=== PATIENT | male | born 1950 | race Caucasian/White ===

== ENCOUNTER 2017-04-28 06:02 | Day surgery (SDC) | payer MEDICARE, OTHER ==
[~2017-04-28] VITALS: Ht 175.3 cm; Wt 90.7 kg
[~2017-04-28 06:02] MED LIST: ASPI325 PO; BUPR150ERA PO; BUPR75 PO; CEPH500 PO; CHOL10002 PO; CIPR500 PO; DILT120 PO; DOCU100 PO; EXTRA STRENGTH500 MG PO; FISH OIL 1,0001 EAC1 PO; FISH1000 PO; HYDR1TAB94 PO; METO50ER PO; MULVITMIND PO; NAPR500 PO; OXYC5 PO; ROXICODONE5 MG PO; TAMS.4ER PO
[2017-04-29 04:47] LABS: BASOPHILS ABSOLUTE AUTO 0.01 K/mm3 (0.00-0.23); BASOPHILS PERCENT AUTO 0 % (0-2); EOSINOPHILS PERCENT AUTO 0 % (0-6); Hematocrit 34.9 % (37.0-53.0); Hemoglobin 11.9 g/dL (13.5-17.5); IMMATURE GRAN ABSOLUTE AUTO 0.02 K/mm3 (0.00-0.10); IMMATURE GRAN PERCENT AUTO 0 % (0-1); LYMPHOCYTES ABSOLUTE AUTO 1.56 K/mm3 (0.84-5.20); LYMPHOCYTES PERCENT AUTO 13 % (21-46); MONOCYTES ABSOLUTE AUTO 1.94 K/mm3 (0.16-1.47); MONOCYTES PERCENT AUTO 16 % (4-13); Mean Corpuscular HGB 30.6 pg (26.0-34.0); Mean Corpuscular HGB Conc 34.1 g/dL (31.5-36.5); Mean Corpuscular Volume 90 fL (80-100); Mean Platelet Volume 9.9 fL (9.1-12.4); NEUTROPHILS ABSOLUTE AUTO 8.77 K/mm3 (1.96-9.15); NEUTROPHILS PERCENT AUTO 71 % (41-73); Platelet Count 177 K/mm3 (150-400); RDW Coefficient Variation 13.3 % (11.7-14.2); Red Blood Cell Count 3.89 M/mm3 (4.30-5.90)
[2017-04-29 05:15] LABS: Anion Gap 6 mmol/L (6-16); Blood Urea Nitrogen 17 mg/dL (8-24); Bun/Creatinine Ratio 22.9 (12.0-20.0); CO2, Blood 25 mmol/L (21-32); Calcium, Blood 8.3 mg/dL (8.5-10.1); Chloride, Blood 109 mmol/L (98-108); Creatinine, Blood 0.74 mg/dL (0.60-1.20); Glomerular Filtration Rate >60 (60-); Glucose, Blood 117 mg/dL (70-99); Magnesium, Blood 2.2 mg/dL (1.6-2.4); Potassium, Blood 3.9 mmol/L (3.5-5.5); Sodium, Blood 140 mmol/L (136-145)
[2017-04-29] MEDS ORDERED: ASPI325EC PO (10:46)
[2017-04-29] MEDS ORDERED: OXYC5 PO (10:46)
== END 2017-04-29 11:21 | disposition home or self-care (01) ==
LOC: SURS 06:02 → PRE IP 06:02 → SURS 06:02 → ORSCMMR 06:02 → PRE IP 07:30 → EDSTATUS 07:30 → SURS 11:13 → ORSCMMR 04-29 11:21
PROVIDERS: Orthopaedic Surgery
PROC: 0SRC0J9 Replacement of Right Knee Joint with Synthetic Substitute, Cemented, Open Approach (ICD-10-PCS; principal; 2017-04-28 07:30)
DX: M17.11 Unilateral primary osteoarthritis, right knee (principal); Z79.899 Other long term (current) drug therapy
CPT/HCPCS: 36415; 73560-RT; 80048; 83735; 85025; 88300; 97110; 97116; 97162; C1713; C1776; G8978; G8979; J0171; J0690; J0735; J1100; J1885; J2250; J2405; J2795; J3010; J7120

== ENCOUNTER 2018-12-25 08:28 | Day surgery (SDC) | payer MEDICARE, OTHER ==
[~2018-12-25] VITALS: Ht 177.8 cm; Wt 93.0 kg
[~2018-12-25 08:28] MED LIST changes: +ASPI325EC PO; +BUPROPION XL150 MG PO; +Vitamin B Comple1 EA PO
== END 2018-12-25 10:50 | disposition home or self-care (01) ==
LOC: ORSCSDS 08:28
PROVIDERS: Internal Medicine Gastroenterology
PROC: 0DBK8ZX Excision of Ascending Colon, Via Natural or Artificial Opening Endoscopic, Diagnostic (ICD-10-PCS; principal; 2018-12-25 09:45)
DX: R19.4 Change in bowel habit (principal); D12.2 Benign neoplasm of ascending colon; K57.30 Diverticulosis of large intestine without perforation or abscess without bleeding; I10 Essential (primary) hypertension; E66.9 Obesity, unspecified; Z68.30 Body mass index [BMI] 30.0-30.9, adult; Z87.891 Personal history of nicotine dependence; Z79.899 Other long term (current) drug therapy
CPT/HCPCS: 88305; J2704; J7120